=== PATIENT | female | born 1990 | race Caucasian/White ===

== ENCOUNTER 2025-09-03 09:36 | Inpatient (IN) | payer MEDICAID, SELFPAY ==
[2025-09-03] VITALS (14 sets, daily range): BP systolic 95–121; BP diastolic 53–76; PULSE 60–82; RESP 14–16; TEMP 36.3–36.8; O2SAT 97–99; BMI 31.5
[2025-09-03] MEDS: Lactated Ringers 1,000 ML 999 ML IV (10:40)
[2025-09-03 10:55] LABS: Hematocrit 35.4 % (37-47); Hemoglobin 11.8 g/dL (12.0-15.0); Immature Granulocytes Count 0.090 X10^3/uL (0.0-0.0); Mean Corp Hgb Conc 33.3 g/dL (32-36); Mean Corpuscular Volume 84.5 fL (81-99); Mean Platelet Vol. 9.9 fl (6.2-12.0); NRBC Flagged by Analyzer 0 % (0-5); Platelet Count 243 K/mm3 (150-450); RBC Distribution Width CV 13.8 % (11.6-14.6); RBC Distribution Width SD 42.4 fl (35.1-43.9); Red Blood Count 4.19 M/mm3 (4.2-5.4); White Blood Count 13.5 K/mm3 (4.4-11.0)
[2025-09-03] MEDS: Lactated Ringers 1,000 ML 150 ML IV (11:39)
[2025-09-03 11:54] LABS: Syphilis Antibodies Nonreactive (Nonreactive)
[2025-09-03] MEDS: Lactated Ringers 1,000 ML 1000 ML IV (12:19)
--- NOTE | 2025-09-03 12:20 | HP.PCM.OB_ITS ---
HPI - General General Date of Admission: 09/03/25 Date of Service: 09/03/25 Chief Complaint: elective section HPI Narrative JAKE CAREY, is a 34 F who presents for a scheduled elective section without complaints. [facility] Medical History (Updated 09/03/25 @ 12:[address] Lisseth Hernandez, DO) Breast mass Breast mass Gene mutation AMA (advanced maternal age) multigravida 35+ ADHD Polyhydramnios Trauma Thyroid disorder depression Headache Home Medications ?Medication ?Instructions ?Recorded ?Last Taken ?Type levothyroxine 75 mcg tablet 75 mcg PO DAILY hypothyroi dism 09/03/25 Unknown History (Synthroid) vit no.95-ferrous 1 tab PO DAILY Unknown History fumarate 28 mg-folic acid 800 mcg tablet ( Multivitamins) Allergy/AdvReac Type Severity Reaction Status Date / Time Penicillins (PCN) Allergy Intermediate Hives Verified 09/03/25 10:30 Surgical History (Updated 09/03/25 @ 10:47 by Dorina Martínez) History of surgery Social History Smoking Status: Former smoker History Elective abortions Hx Para 5 Spontaneous abortions Hx # Term Pregnancies Ectopic pregnancies Hx # Pregnancies Multiple births # of living children Vital Signs Vital Signs Vital Signs: 09/03/25 10:01 09/03/25 10:01 09/03/25 10:01 Temperature 98.2 F Temperature Source Temporal Pulse Rate Respiratory Rate 16 Blood Pressure BP Systolic BP Diastolic Pulse Ox 09/03/25 10:01 09/03/25 10:01 09/03/25 10:01 Temperature Temperature Source Temporal Pulse Rate 80 Respiratory Rate Blood Pressure 121/76 H BP Systolic 121 BP Diastolic 76 Pulse Ox 09/03/25 10:01 09/03/25 10:01 Temperature Temperature Source Pulse Rate Respiratory Rate 16 Blood Pressure BP Systolic BP Diastolic Pulse Ox 99 Weight Weight: 194 lb Body Mass Index (BMI) 31.5 PRE- weight 156 lb PRE- Body Mass Index 25.3 (BMI) Labs Labs Labs: Blood Type A POSITIVE Antibody Screen NEGATIVE Hct, (37-47) 35.4 % L Hgb, (12.0-15.0) 11.8 g/dL L Syphilis Total Ab, (Nonreactive) Nonreactive Assessment & Plan (1) 39 weeks gestation of : PLAN: Patient desires section after discussion of r/b/a due to history prior shoulder dystocias and narrow pelvis on exam. Routine pre op care. (2) AMA (advanced maternal age) multigravida 35+: (3) History of shoulder dystocia in prior :
[2025-09-03] MEDS: morphine PF (epidural) 5 MG/10 ML Vial EPIDURAL (12:27)
[2025-09-03] MEDS: Gentamicin 800 MG/20 ML Vial 350 MG IV (12:39)
--- NOTE | 2025-09-03 13:26 | OP.PCM_ITS ---
Operative Report (Standard) Operative Information Date of Procedure: 09/03/25 Pre-Operative Diagnosis: 39 week gestation, AMA, history shoulder dystocia Post-Operative Diagnosis: As above Surgery/Procedure Performed: PLTCS via pfannenstiel incision school bus mechanic: Yes Manager Strategic Alliances: Kamlesh WAGNER Tasks completed by environmental engineering assistant: Closing and Retracting Type of Anesthesia: Spinal RN Documented Start/Stop Times: Operation Date: 09/03/25 12:00 <No data on this case meets the specified criteria> Procedure Start Time: 12:39 Procedure Stop Time: 13:25 Select all DRAINS/GRAFTS/IMPLANTS that apply: None Estimated Blood Loss: 900 mL Fluids Replaced: 1200 mL Specimen collected: No Description of surgery: The patient was taken to the operating room where spinal anesthesia was found to be adequate. She was prepped and draped in the dorsal supine position with a leftward tilt. A Pfannenstiel skin incision was made with a scalpel and carried down to the underlying layer of fascia. The fascia was incised in midline. The fascial incision was extended laterally using Valdivia scissors. The fascia was tented off the rectus muscles using Nyla clamps and dissected with a combination of sharp and blunt dissection off the rectus muscles both cephalad and caudad. The peritoneum was entered bluntly. The peritoneal incision was extended with lateral traction. A bladder blade was inserted. A low transverse incision was made on the uterus with a scalpel. Membranes were ruptured for a large amount of clear fluid upon entry into the uterus. The uterine incision was extended with a cephalad and caudad traction. The head of the was elevated out of the pelvis, and delivered through the hysterotomy in a flexed position followed by the shoulders and body without any traction, force, or delay. The cord was clamped and cut after the slight delay. The vigorous viable female infant was handed off to the waiting nursery staff. The placenta was delivered with fundal massage and noted to be normal-appearing and intact. The uterus was exteriorized. The uterus was cleared of all clot and debris. The hysterotomy was closed with 1-0 Vicryl in a running locked fashion. 2 additional [id number] sutures were placed in the midline for hemostasis. The bilateral adnexa were normal-appearing. The uterus was placed back into the abdomen. Hemoblast was placed over the lower uterine segment and hysterotomy. Hemostasis was again confirmed. The peritoneum was unable to be reapproximated easily. The subfascial space was inspected and noted to be hemostatic. The fascia was closed with STRATAFIX in a running fashion. The subcutaneous space was irrigated and made hemostatic with the Bovie cautery. The subcutaneous space was reapproximated with 3-0 Vicryl in a running fashion. The skin was closed with 4-0 Monocryl in a subcuticular fashion. A dressing was placed. Instrument, sharp, sponge counts were correct x 2 the patient was taken to the recovery in stable condition. Surgical Findings: Vigorous VFI with Apgars 9, 9 with a loose nuchal cord x 1 without compression Large amount of clear fluid Normal appearing uterus and bilateral adnexa Normal appearing placenta Complications Complications: No Admit VTE Documentation VTE Present on Admission: No VTE Mechan Device Prophylaxis: SCD's
[2025-09-03] MEDS: Oxytocin 15 Units/NS 250ml 15 UNITS/250 ML IV.SOLN 83 UNITS IV (13:45)
[2025-09-03] MEDS: Ketorolac 30 MG/ML Syringe IV ×2 (14:34→20:07)
[2025-09-03] MEDS: Lactated Ringers 1,000 ML 100 ML IV (17:05)
[2025-09-04 00:57] VITALS: BP 101/54; PULSE 62; RESP 16; TEMP 36.6; O2SAT 96
[2025-09-04] MEDS: Ketorolac 30 MG/ML Syringe IV ×2 (02:00→08:28)
[2025-09-04] MEDS: 0.9% Saline Lock 10 ML Syringe IV ×2 (02:01→08:28)
[2025-09-04 06:18] VITALS: BP 103/64; PULSE 67; RESP 16; TEMP 36.6
[2025-09-04 06:36] LABS: Hematocrit 32.4 % (37-47); Hemoglobin 10.8 g/dL (12.0-15.0); Mean Corp Hgb Conc 33.3 g/dL (32-36); Mean Corpuscular Volume 85.0 fL (81-99); Mean Platelet Vol. 9.9 fl (6.2-12.0); Platelet Count 246 K/mm3 (150-450); RBC Distribution Width CV 13.9 % (11.6-14.6); RBC Distribution Width SD 43.0 fl (35.1-43.9); Red Blood Count 3.81 M/mm3 (4.2-5.4); White Blood Count 16.6 K/mm3 (4.4-11.0)
--- NOTE | 2025-09-04 07:29 | PCM.PN.CNM ---
Subjective Subjective Patient seen at bedside. Denies headache, vision changes, SOB or CP. Ambulating and voiding without difficulty. Passing flatus. Lochia decreased. Objective Data Objective Data Vital Signs: Vital Signs Temp Pulse Resp BP Pulse Ox O2 Del Method 97.8 F 67 16 103/64 96 Room Air 09/04/25 06:18 09/04/25 06:18 09/04/25 06:18 09/04/25 06:18 09/04/25 00:57 09/04/25 06:18 Oxygen Delivery Method Room Air Weight: 194 lb Body Mass Index (BMI) 31.5 Intake & Output: Intake and Output for Last 24 Hours 09/02/25 09/03/25 09/04/25 23:59 23:59 23:59 Intake Total 2641.67 / 2641.67 Output Total 3800 / 3800 1150 / 1150 Balance -1158.33 / -1158.33 -1150 / -1150 Lab / Micro Data Attestation: I reviewed the patient's lab results. 09/04/25 06:29 Labs: Laboratory Results - last 24 hr 09/03/25 08:45: WBC 13.5 H, RBC 4.19 L, Hgb 11.8 L, Hct 35.4 L, MCV 84.5, MCH 28.2, MCHC 33.3, RDW Std Deviation 42.4, RDW Coeff of New 13.8, Plt Count 243, MPV 9.9, Immature Gran % (Auto) 0.700, Neut % (Auto) 81.8 H, Lymph % (Auto) 11.8 L, Guadalupe % (Auto) 4.7, Eos % (Auto) 0.7, Baso % (Auto) 0.3, Absolute Neuts (auto) 11.0 H, Absolute Lymphs (auto) 1.59, Nucleated RBC % 0, Syphilis Total Ab Nonreactive, Blood Type A POSITIVE, Antibody Screen NEGATIVE 09/04/25 06:29: WBC 16.6 H, RBC 3.81 L, Hgb 10.8 L, Hct 32.4 L, MCV 85.0, MCH 28.3, MCHC 33.3, RDW Std Deviation 43.0, RDW Coeff of New 13.9, Plt Count 246, MPV 9.9 ROS Eyes Eyes: Denies blurry vision, spots in vision or tunnel vision ENT HEENT: Denies dizziness or headache(s) Cardiovascular Cardiovascular: Reports systems reviewed and no addt'l complaints, except as documented, dizziness and dyspnea Respiratory/Chest Respiratory/Chest: Reports systems reviewed and no addt'l complaints, except as documented Gastrointestinal Gastrointestinal: Reports systems reviewed and no addt'l complaints, except as documented Genitourinary Genitourinary: Reports systems reviewed and no addt'l complaints, except as documented Neurologic Neurologic: Denies abnormal speech, dizziness, headache(s), syncope or vertigo Psychiatric Psychiatric: Reports systems reviewed and no addt'l complaints, except as documented Physical Exam Const alert and no apparent distress General Appearance: cooperative Orientation / Consciousness: awake, oriented to person and oriented to place Exam Limitations: no limitations HEENT normocephalic Eyes General Eye: normal appearance of both eyes Neck full ROM Chest Chest: symmetrical chest wall rise Resp normal respiratory effort, normal air movement and clear to auscultation bilaterally Auscultation: clear to auscultation bilaterally Cardio regular rate and regular rhythm GI normal to inspection, nondistended, normoactive bowel sounds Uterus Palpation: uterus fundus firm Extremity full ROM and no calf tenderness Skin no rashes or lesions noted Neuro oriented x3 Psych mental status grossly normal and activity/motor behavior normal Assessment & Plan (1) Status post primary low transverse section: (2) Post-operative pain: (3) Thyroid disorder: (4) AMA (advanced maternal age) multigravida 35+: PLAN: Plan POD 1 Primary C/S Pain control Increase ambulation support Anticipate discharge home tomorrow
[2025-09-04 07:51] VITALS: BP 98/67; PULSE 70; RESP 14; TEMP 36.6; O2SAT 96
--- NOTE | 2025-09-04 10:42 | CASEMGMT ---
Social Work Assessment Labor and Delivery Unit Patient Address: [address] [place] [address] [address] [place] [id number] Phone number: [phone] Date of Referral: 09/03/25 Time of Referral:?[id number] Referred By: Lisseth Hernandez DO Date of Intervention: 09/04/25 Time of Intervention:? 944 Reason for Referral:?hx of PPD History obtained from: medical records, mother of baby (DIONISIO) Household composition: DIONISIO reports that currently residing in her home is herself, her 5 children (Diana, Sheila, Arabella, Moi, and Sullivan), and her Gera. baby, Meenu Syed, to be added to home when ready for discharge. MOB states that housing is safe and secure. Patient's parent/guardian status:? DIONISIO reports that FOB is , Gera. Medical History: ?DIONISIO is a 34 year old female who is 7, para 5 - now 6 following labor and delivery of . DIONISIO received routine care throughout with [facility]. DIONISIO presented to hospital for an elective at 39 weeks gestation on 09/03/25. [place] baby girl, Arabella Syed, was born weighing 8lbs, 1oz with apgars of 9 and 9 at one and five minutes of life respectively. DIONISIO is planning to breast feed and baby will be followed by [facility] providers in [place]. Educational Status:? DIONISIO reports graduating high school and having no difficulties with schooling. 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 Supplies: MOB reports having obtained all necessary baby supplies, including: car seat, safe sleep space, clothes, diapers, and wipes. Childcare/Caregiver(s):?DIONISIO reports she will be the main caregiver with FOB and 16 year old daughter (Diana) helping. Transportation:?MOB reports having reliable transportation and denies needing help in this area. Programs/Agencies Involved: MOB reports receiving WIC, but denies other agency involvement. Children Services/Legal Issues:?MOB denies. Behavioral Health Issues: ??Mental Health History: MOB reports having diagnosis of ADHD and struggling with PPD in the past. MOB denies taking any medication or being involved in any counseling for this. Substance Use History: MOB confirms being a former smoker, but denies current use. Family History:?MOB denies any family history of mental health that she is aware of. Drug Screens: MOB received no drug screen on admission due to having no concerns. Family/Social Stressors:?MOB reports no current stressors or concerns. Support Systems: MOB reports having a large support system in family and friends. Depression/Shaken Baby/Safe Sleeping: SW educated MOB on signs and symptoms of baby blues and mood and anxiety disorders to be mindful of during this period. MOB states not believing self to be struggling with in that area following this delivery and SW educated MOB that this can occur for up to a year after delivery. SW also encouraged MOB to touch base with OB if she begins to struggle to discuss options. SW educated MOB on shaken baby prevention and ABCs of safe sleep. MOB expressed understanding. ASSESSMENT:?MOB and baby admitted following labor and delivery. MOB has mental health history of ADHD and PPD, but denies having counseling. This is MOB's 6th child and all still live with MOB and FOB. MOB denies any agency involvement besides WIC. MOB denies struggling with PPD after this delivery and was educated on how PPD symptoms can occur up to a year after delivery. MOB was observed laying in bed and stated being very tired, reporting not sleeping beyond an hour last night due to pain from the . Baby was observed sleeping soundly in the bassinet and FOB was not in the room. MOB appeared to be annoyed at SW presence, but with SW explanation, MOB was more open to SW assessment. MOB was receptive to resources provided and discussed. No concerns from nursing were noted. Safe Plan of Care for infant related to substance use:? N/A due to MOB receiving no drug screen on admission due to having no concerns. PLAN:?? No other services requested or indicated. MOB and baby to be discharged when medically ready. Parents were provided literature regarding: signs and symptoms of baby blues and mood and anxiety disorders, Help Me Grow, shaken baby prevention, ABCs of safe sleep and a list of county resources that are available for them should any needs present themselves. Marjorie Gao, MEDICAL CHIEF TECHNICIAN, MANAGER PRODUCT SUPPORT
[2025-09-04 12:10] VITALS: BP 112/72; PULSE 72; RESP 14; TEMP 36.6; O2SAT 99
[2025-09-04] MEDS: Senna/Docusate Sodium 1 Tablet PO (12:54)
[2025-09-04] MEDS: Prenatal Vits Tablet 1 TABLET PO (12:55)
[2025-09-04 16:00] VITALS: BP 99/65; PULSE 71; RESP 16; TEMP 36.6; O2SAT 97
[2025-09-04 19:35] VITALS: BP 111/66; PULSE 85; RESP 16; TEMP 36.6; O2SAT 99
[2025-09-05 01:30] VITALS: BP 117/73; PULSE 62; RESP 18; TEMP 36.6; O2SAT 100
[2025-09-05 07:53] VITALS: BP 118/78; PULSE 70; RESP 16; TEMP 36.4; O2SAT 98
--- NOTE | 2025-09-05 07:59 | PCM.DC.SUM ---
Providers Date of Admission: 09/03/25 Primary Care Physician: No Primary Care Phys Reason For Visit: C SECTION/primary C SECTION DELIVERY Diagnosis Discharge Diagnosis (1) Status post primary low transverse section: Status: Acute Code(s): Z98.891 - History of uterine scar from previous surgery (2) Post-operative pain: Status: Acute Code(s): G89.18 - Other acute postprocedural pain (3) Thyroid disorder: Status: Acute Code(s): E07.9 - Disorder of thyroid, unspecified (4) AMA (advanced maternal age) multigravida 35+: Status: Acute Code(s): O09.529 - Supervision of elderly multigravida, unspecified trimester Plan PO Primary C/S Pain control Increase ambulation support Desires discharge home Medications at Discharge Home Medications levothyroxine 75 mcg tablet (Synthroid) 75 mcg PO DAILY hypothyroidism 09/03/25 vit no.95-ferrous fumarate 28 mg-folic acid 800 mcg tablet ( Multivitamins) 1 tab PO DAILY 09/03/25 acetaminophen 500 mg tablet 1,000 mg (2 x 500 mg) PO Q6H #0 tabs 09/05/25 ibuprofen 600 mg tablet 600 mg PO Q6H #0 tabs 09/05/25 oxycodone 5 mg tablet 5 - 10 mg (1 - 2 x 5 mg) PO Q4H PRN PRN Pain Score 4-10 3 days #14 tabs 09/05/25 sennosides 8.6 mg-docusate sodium 50 mg tablet (Stimulant Laxative Plus) 1 - 2 tab PO DAILY #0 tabs 09/05/25 Hospital Course Operations section Procedures None Summary of Care Provided Minutes Spent on Discharge: 15 Hospital Course: Patient had section. Hospital course was uneventful. Physical Exam Narrative Patient standing at bedside ambulating in room. Wearing binder. Voiding without difficulty. Passing flatus. Desires discharge home today. Const alert and no apparent distress General Appearance: cooperative and comfortable Exam Limitations: no limitations HEENT normocephalic Eyes General Eye: normal appearance of both eyes Neck full ROM General: normal visual inspection Chest Chest: symmetrical chest wall rise Resp normal respiratory effort and normal air movement Effort and Inspection: symmetric chest movement Auscultation: clear to auscultation bilaterally Cardio regular rate and regular rhythm GI normal to inspection, nondistended, normoactive bowel sounds Back/Spine normal ROM Extremity full ROM and no calf tenderness General Extremity: normal exam except as noted Skin no rashes or lesions noted Wound Narrative: Dressing is dry and intact. Neuro CN's II-XII intact bilaterally Psych mental status grossly normal Weight / BMI Weight Weight: 194 lb Body Mass Index (BMI) 31.5 PRE- weight 156 lb PRE- Body Mass Index 25.3 (BMI) ABG / Lab / Microbiology Data 09/04/25 06:29 D/C Instructions Discharge Activity: May Drive (2 weeks) and May Shower May resume sexual activity in: 6-8 weeks Weight Bearing Status: Weight bearing as tolerated Lifting Restricted to (Lbs): 25 Call your doctor if your incision/area has: Continuous Slow Oozing, Sudden Increased Bleeding, Increased Pain/ Swelling, Increased Redness, Foul Smelling Discharge and Swelling at the incision site Call your doctor if you observe: Fever of 101 or Higher, Numbness or Tingling, Using more than 1 pad per hour, Shortness of breath, Dizziness, Swelling in the ankles, Chest pain, Calf discomfort and Uncontrolled pain Suture Line Care: Avoid Pulling/Pushing Remove Dressing in: 5 days (Remove yourself or call office and schedule appointment for dressing removal.) DC O2, CPAP, BIPAP Needs Home O2 Discharge instructions: No When: 5 days for dressing removal or 2 weeks for post appointment. Meaningful Use Info Meaningful Use Meaningful Use Diagnoses (Choose all that apply): None applicable Discharge Plan Admission Admit Date/Time: 09/03/25 09:36 Primary Reason for Your Visit: Delivery Attending Provider: Lisseth Hernandez Primary Care Provider: Care Physician,Danielle Primary Discharge Orders/Prescriptions Prescriptions: New sennosides-docusate sodium [Stimulant Laxative Plus] 8.6-50 mg Tablet 1 - 2 tab PO DAILY Qty: 0 0RF acetaminophen 500 mg Tablet 1,000 mg PO Q6H Qty: 0 0RF ibuprofen 600 mg Tablet 600 mg PO Q6H Qty: 0 0RF oxycodone 5 mg Tablet 5 - 10 mg PO Q4H PRN PRN (Reason: Pain Score 4-10) 3 Days Qty: 14 0RF Continued levothyroxine [Synthroid] 75 mcg tablet 75 mcg PO DAILY PNV no.95-ferrous fumarate-FA [ Multivitamins] 28 mg iron- 800 mcg tablet 1 tab PO DAILY Referrals / Follow Up: Care Physician,No Primary [Primary Care Provider, Medical] Disposition Disposition (needs filled in before D/C Order can be placed): Home, Self Care
[2025-09-05] MEDS: Prenatal Vits Tablet 1 TABLET PO (09:54)
[2025-09-05] MEDS: Senna/Docusate Sodium 1 Tablet PO (09:54)
[2025-09-05 11:01] VITALS: BP 121/73; PULSE 65; RESP 16; TEMP 36.4; O2SAT 98
== END 2025-09-05 13:30 | disposition home or self-care (01) | DRG 540 ==
PROVIDERS: Admitting Provider Obstetrics & Gynecology; Referring Provider Obstetrics & Gynecology; Visit Provider Obstetrics & Gynecology
PROC: 10D00Z1 Extraction of Products of Conception, Low, Open Approach (ICD-10-PCS; CPT 59514; principal; 2025-09-03 11:45)
DX: O33.1 Maternal care for disproportion due to generally contracted pelvis (principal); E03.9 Hypothyroidism, unspecified; O69.81X0 Labor and delivery complicated by cord around neck, without compression, not applicable or unspecified; Z37.0 Single live birth; Z3A.39 39 weeks gestation of pregnancy; O99.284 Endocrine, nutritional and metabolic diseases complicating childbirth; Z79.890 Hormone replacement therapy; Z87.59 Personal history of other complications of pregnancy, childbirth and the puerperium; Z87.891 Personal history of nicotine dependence
CPT/HCPCS: 59025; 59050; 85025; 85027; 86780; 86850; 86900; 86901; 99221; A4216; G0378; J2405